=== PATIENT | female | born 1990 | race Asian ===

== ENCOUNTER → 2024-01-10 09:22 | Outpatient (REF) | payer BC, SELFPAY | LOC: PNTC 09:22 | PROVIDERS: ATTENDING PHYSICIAN Obstetrics & Gynecology | DX: Z36.0 Encounter for antenatal screening for chromosomal anomalies (principal); Z36.82 Encounter for antenatal screening for nuchal translucency | CPT/HCPCS: 76801; 76813 ==

== ENCOUNTER 2024-07-14 11:49 | Inpatient (IN) | payer BC, SELFPAY ==
[2024-07-14 12:14] LABS: % Basophils 0.3 % (0-2); % Eosinophils 0.8 % (0-6); % Immature Granulocytes 0.5 % (0-0.5); % Monocytes 6.7 % (1.7-9.3); % Neutrophils 74.7 % (42.2-75.2); Absolute Eosinophils 0.1 10^3/uL (0-0.7); Absolute Lymphocytes 1.3 10^3/uL (1.2-3.4); Absolute Monocytes 0.5 10^3/uL (0.1-0.6); Absolute Neutrophils 5.8 10^3/uL (1.4-6.5); Hemoglobin 11.1 g/dL (12.0-16.0); Mean Corp Hgb Conc. 31.7 g/dL (33.0-37.0); Mean Corpuscular Hgb 23.8 pg (27.0-31.0); Mean Corpuscular Volume 74.9 fL (81.0-99.0); Mean Platelet Volume 11.5 fL (7.4-10.4); Nucleated Red Blood Cells % 0 %; Platelet Count 222 10^3/uL (130-400); Red Blood Cell Count 4.67 10^6/uL (4.20-5.40); Red Cell Dist. Width 16.5 % (11.5-14.5); White Blood Cell Count 7.8 10^3/uL (4.8-10.8)
[2024-07-14 12:57] VITALS: BP 144/89; BMI 29.8
[2024-07-14] MEDS: PITOCIN 30 UNITS/NSS 500 ML IV (14:34)
[2024-07-15] MEDS: LR 1000 IV ×2 (00:05→01:55)
[2024-07-15] MEDS: SUBLIMAZE 100 MCG EPIDURAL (00:39)
[2024-07-15] MEDS: FENTANYL/BUPIVACAINE 100 EPIDURAL ×2 (00:39→09:03)
[2024-07-15] MEDS: PREPARATION H MAX STRENGTH PAIN RELIEF CREAM 1 APPLIC RECTAL (16:04)
[2024-07-15] MEDS: VITAMIN D3 (cholecalciferol) 25 MCG PO (17:55)
[2024-07-15] MEDS: PRENATAL PLUS 1 TABLET PO (17:55)
[2024-07-15] MEDS: MOTRIN 600 MG PO (18:40)
[2024-07-15] MEDS: TYLENOL 650 MG PO (18:40)
[2024-07-16] MEDS: TYLENOL 650 MG PO ×3 (03:17→23:42)
[2024-07-16] MEDS: MOTRIN 600 MG PO ×3 (03:17→23:42)
[2024-07-16 05:07] LABS: Hematocrit 25.2 % (37.0-47.0); Hemoglobin 8.1 g/dL (12.0-16.0)
[2024-07-16] MEDS: VITAMIN D3 (cholecalciferol) 25 MCG PO (08:04)
[2024-07-16] MEDS: PRENATAL PLUS 1 TABLET PO (08:04)
[2024-07-16] MEDS: SENOKOT-S 1 TABLET PO (08:04)
[2024-07-17] MEDS: PRENATAL PLUS 1 TABLET PO (07:58)
[2024-07-17] MEDS: VITAMIN D3 (cholecalciferol) 25 MCG PO (07:58)
[2024-07-17] MEDS: FEOSOL 325 MG PO (07:58)
[2024-07-17] MEDS: MOTRIN 600 MG PO (08:09)
[2024-07-17] MEDS: TYLENOL 650 MG PO (08:09)
[2024-07-18 11:54] LABS: Syphilis/T. pallidum Ab Reflex Negative (Negative)
== END 2024-07-17 12:44 | disposition home or self-care (01) | DRG 807 ==
LOC: LDRP 11:49
PROVIDERS: Obstetrics & Gynecology; ADMITTING PHYSICIAN Obstetrics & Gynecology
PROC: 10E0XZZ Delivery of Products of Conception, External Approach (ICD-10-PCS; 2024-07-15)
PROC: 0KQM0ZZ Repair Perineum Muscle, Open Approach (ICD-10-PCS; 2024-07-15)
DX: O35.8XX0 Maternal care for other (suspected) fetal abnormality and damage, not applicable or unspecified (principal); Z37.0 Single live birth; O76 Abnormality in fetal heart rate and rhythm complicating labor and delivery; O70.1 Second degree perineal laceration during delivery; Z3A.39 39 weeks gestation of pregnancy
CPT/HCPCS: 85014; 85018; 85025; 86780; 86850; 86900; 86901